=== PATIENT | male | born 1995 | race African-American/Black ===

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

== ENCOUNTER 2018-04-15 23:44 | Emergency (ER) | payer BC ==
[~2018-04-15] VITALS: Ht 180.3 cm; Wt 127.5 kg
[~2018-04-15 23:44] MED LIST: CORTISPORIN OTI10 M2 OTIC
[2018-04-16] MEDS ORDERED: IBUPROFEN 400400 M2 PO (01:03)
[2018-04-16 01:36] VITALS: BP 114/58
== END 2018-04-16 01:37 | disposition home or self-care (01) ==
LOC: ER 23:44
DX: S02.5XXA Fracture of tooth (traumatic), initial encounter for closed fracture (principal); S01.511A Laceration without foreign body of lip, initial encounter; S09.90XA Unspecified injury of head, initial encounter; V89.2XXA Person injured in unspecified motor-vehicle accident, traffic, initial encounter; Y92.89 Other specified places as the place of occurrence of the external cause; Y93.89 Activity, other specified; Y99.8 Other external cause status